=== PATIENT | male | born 1980 | race Caucasian/White ===

== ENCOUNTER 2016-12-20 15:49 | Emergency (ER) | payer MEDICAID ==
[2016-12-20 15:54] VITALS: O2SAT 97
--- NOTE | 2016-12-20 16:22 | EDPHY ---
H & P Stated Complaint: rash since last night on hands behind knees & ankles Time Seen by Provider: 12/20/16 15:56 HPI/ROS: CHIEF COMPLAINT: Rash HISTORY OF PRESENT ILLNESS: The patient is a 36-year-old man who has a pruritic vesicular type rash behind his right knee, on his right leg and on both hands. 1st noticed it last night. His girlfriend does not have any similar symptoms. They moved into a new house 2 days ago. No fever. REVIEW OF SYSTEMS: Constitutional: denies: chills, fever, recent illness, recent injury EENTM: denies: blurred vision, double vision, nose congestion Respiratory: denies: cough, shortness of breath Cardiac: denies: chest pain, irregular heart rate, lightheadedness, palpitations Gastrointestinal/Abdominal: denies: abdominal pain, diarrhea, nausea, vomiting, blood streaked stools Genitourinary: denies: dysuria, frequency, hematuria, pain Musculoskeletal: denies: joint pain, muscle pain Skin: denies: lesions, rash, jaundice, bruising Neurological: denies: headache, numbness, paresthesia, tingling, dizziness, weakness Hematologic/Lymphatic: denies: blood clots, easy bleeding, easy bruising Immunologic/allergic: denies: HIV/AIDS, transplant EXAM: GENERAL: Well-appearing, well-nourished and in no acute distress. HEAD: Atraumatic, normocephalic. EYES: Pupils equal round and reactive to light, extraocular movements intact, sclera anicteric, conjunctiva are normal. ENT: TMs normal, nares patent, oropharynx clear without exudates. Moist mucous membranes. NECK: Normal range of motion, supple without lymphadenopathy or JVD. LUNGS: Breath sounds clear to auscultation bilaterally and equal. No wheezes rales or rhonchi. HEART: Regular rate and rhythm without murmurs, rubs or gallops. ABDOMEN: Soft, nontender, normoactive bowel sounds. No guarding, no rebound. No masses appreciated. BACK: No CVA tenderness, no spinal tenderness, step-offs or deformities EXTREMITIES: Normal range of motion, no pitting or edema. No clubbing or cyanosis. NEUROLOGICAL: Cranial nerves II through XII grossly intact. Normal speech, normal gait. 5/5 strength, normal movement in all extremities, normal sensation PSYCH: Normal mood, normal affect. SKIN: Multiple linear burrows and vesicles on behind patient's right knee and leg and hands. Involves the increases between fingers and around fingernails. Source: Patient Exam Limitations: No limitations - Personal History Current Tetanus/Diphtheria Vaccine: Yes Current Tetanus Diphtheria and Acellular Pertussis (TDAP): Yes - Medical/Surgical History Hx Asthma: No Hx Chronic Respiratory Disease: No Hx Diabetes: No Hx Cardiac Disease: No Hx Renal Disease: No Hx Cirrhosis: No Hx Alcoholism: No Hx HIV/AIDS: No Hx Splenectomy or Spleen Trauma: No Other PMH: none - Family History Significant Family History: No pertinent family hx - Social History Smoking Status: Never smoked Alcohol Use: Sober Drug Use: None Constitutional: Initial Vital Signs Temperature (C) 36.4 C 12/20/16 15:52 Heart Rate 81 12/20/16 15:52 Respiratory Rate 16 12/20/16 15:52 Blood Pressure 138/87 H 12/20/16 15:52 O2 Sat (%) 97 12/20/16 15:52 O2 Delivery Mode Room Air Allergies/Adverse Reactions: No Known Allergies Allergy (Unverified 12/20/16 15:54) Home Medications: Medication Instructions Recorded Permethrin [Elimite] 60 gm TP ONCE #0 cream..g. 12/20/16 Medical Decision Making ED Course/Re-evaluation: The patient's symptoms and exam were consistent with scabies. I will start him on permethrin. He understands and agrees with this plan. We discussed care of the dog and girlfriend and house. I will have him follow up with primary care physician. He is declining further workup assistants point we also discussed antihistamines for itching. Differential Diagnosis: Partial list of the Differential diagnosis considered include but were not limited to; scabies, insect bite, pediculosis, atopic dermatitis, psoriasis and although unlikely based on the history and physical exam, I also considered allergic reaction, cellulitis, abscess. I discussed these differential diagnoses and the plan with the patient as well as the usual and expected course. The patient understands that the diagnosis is provisional and that in medicine we are not always correct and that further workup is often warranted. Usual and customary warnings were given. All of the patient's questions were answered. The patient was instructed to return to the emergency department should the symptoms at all worsen or return, otherwise to followup with the physician as we discussed. Departure - Departure Disposition: Home, Routine, Self-Care Clinical Impression: Scabies Condition: Fair Instructions: Scabies (ED) Referrals: NONE *PRIMARY CARE P,. [Primary Care Provider] - As per Instructions Amalia Pitts MD [[facility] [place], [place] Primary Care Provider] - As per Instructions Prescriptions: Permethrin [Elimite] 60 gm TP ONCE #0 cream..g.
[2016-12-20 16:44] VITALS: BP 133/79; PULSE 63; RESP 18; TEMP 98.1
== END 2016-12-20 16:44 | disposition home or self-care (01) ==
DX: B86 Scabies (principal)

== ENCOUNTER 2016-12-20 18:08 | Emergency (ER) | payer MEDICAID ==
[2016-12-20 18:15] VITALS: BP 142/92; PULSE 75; RESP 16; TEMP 98.1; O2SAT 98
--- NOTE | 2016-12-20 20:21 | EDPHY ---
H & P Smoking Status: Never smoked Time Seen by Provider: 12/20/16 19:46 HPI/ROS: CHIEF COMPLAINT: Rash HISTORY OF PRESENT ILLNESS: This is a 36-year-old male presenting to the emergency department complaining of rash. Patient was seen earlier today 12/20/2016 for rash was given prescription for permethrin for scabies, patient wanted a skin scraping or wound culture and antibiotics. No fever no chills no new complaints REVIEW OF SYSTEMS: Constitutional: No fever, no chills. Eyes: No discharge. ENT: No sore throat. Cardiovascular: No chest pain, no palpitations. Respiratory: No cough, no shortness of breath. Gastrointestinal: No abdominal pain, no vomiting. Genitourinary: No hematuria. Musculoskeletal: No back pain. Skin: rashes. Neurological: No headache. (Melanie Lyle) Physical Exam: General Appearance: Alert and no distress. Eyes: Pupils equal and round no injection. Oropharynx no erythema, no ulcers noted Respiratory: Chest is nontender, lungs are clear to auscultation. No rhonchi Cardiac: regular rate and rhythm Gastrointestinal: Abdomen is soft and nontender, no masses, bowel sounds normal. Musculoskeletal: Neck is supple and nontender. Extremities: full range of motion and are nontender. Skin: Vesicles noted between webbing of fingers, macular papular rash noted right popliteal, right inner thigh (Melanie Lyle) Constitutional: Initial Vital Signs Temperature (C) 36.7 C 12/20/16 18:13 Heart Rate 75 12/20/16 18:13 Respiratory Rate 16 12/20/16 18:13 Blood Pressure 142/92 H 12/20/16 18:13 O2 Sat (%) 98 12/20/16 18:13 O2 Delivery Mode Room Air Allergies/Adverse Reactions: No Known Allergies Allergy (Unverified 12/20/16 15:54) Home Medications: Medication Instructions Recorded Permethrin [Elimite] 60 gm TP ONCE #0 cream..g. 12/20/16 Medical Decision Making ED Course/Re-evaluation: Discussed with patient to utilize the permethrin 1% that was prescribed to him by previous provider for scabies. No antibiotics are needed 2024: Discussed discharge instructions---> discharge home, stable (Melanie Lyle ) Differential Diagnosis: Other differential diagnosis considered but not limited to bedbugs, hand foot and mouth disease, contact dermatitis (Melanie Lyle) Other Provider: This patient was evaluated and managed by the nurse practitioner. I have reviewed the chart and agree with the findings and plan of care as documented. ( Bridgette Kearney) Departure - Departure Disposition: Home, Routine, Self-Care Clinical Impression: Rash, Scabies Condition: Good Instructions: Scabies (ED) Additional Instructions: Discussed discharge instructions 1. Use medication as prescribed by previous provider 2. Wash all bedding and clothing in hot water 3. I would recommend following up with your primary care provider [place] follow up with Dermatology if symptoms have not resolved Referrals: NONE *PRIMARY CARE P,. [Primary Care Provider] - As per Instructions [facility],. [Clinic] - As per Instructions
== END 2016-12-20 20:32 | disposition home or self-care (01) ==
DX: R21 Rash and other nonspecific skin eruption (principal); B86 Scabies

== ENCOUNTER 2017-05-07 16:55 | Emergency (ER) | payer MEDICAID ==
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
[2017-05-07 18:40] VITALS: BP 120/82; PULSE 65; RESP 12; TEMP 98.4; O2SAT 94
== END 2017-05-07 18:37 | disposition home or self-care (01) ==
DX: R20.2 Paresthesia of skin (principal)
CPT/HCPCS: L3807

== ENCOUNTER 2018-08-29 02:02 | Emergency (ER) | payer MEDICAID ==
[2018-08-29 02:33] LABS: PLATELET COUNT 212 10^3/uL (150-400)
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
[2018-08-29 03:50] VITALS: BP 106/78
== END 2018-08-29 03:50 | disposition home or self-care (01) ==
DX: S09.90XA Unspecified injury of head, initial encounter (principal); F10.920 Alcohol use, unspecified with intoxication, uncomplicated; Y04.8XXA Assault by other bodily force, initial encounter; Y92.9 Unspecified place or not applicable; Y93.9 Activity, unspecified; Y99.9 Unspecified external cause status
CPT/HCPCS: G0480

== ENCOUNTER 2018-11-25 18:30 | Emergency (ER) | payer MEDICAID ==
--- NOTE | 2018-11-25 19:22 | EDPHY ---
H & P Stated Complaint: PARANOIA AND HALLUCINATION, NO DIAGNOSED PSYCH HX Time Seen by Provider: 11/25/18 19:05 HPI/ROS: CHIEF COMPLAINT: Paranoia, insomnia HISTORY OF PRESENT ILLNESS: 37-year-old male presents with paranoia and insomnia. He recently went through a break-up with his girlfriend and became quite depressed. He has been unable able to sleep because of depression. After couple of sleepless nights, he developed some paranoia and feels that people are threatening him. Associated with seeing pieces of paper that say "leave town". He was able to sleep a little last night and today feels better. He feels that if he could just get a good night's sleep, the symptoms would resolve. He had a previous similar episode 1 year ago associated with lack of sleep. He does not use drugs and does not drink alcohol. No prior history of mental illness. h/o hallucinations after taking ambien. No suicidal or homicidal ideation. REVIEW OF SYSTEMS: complete 10 point ROS reviewed and is negative except for the noted elements in the HPI - Medical/Surgical History Hx Asthma: No Hx Chronic Respiratory Disease: No Hx Diabetes: No Hx Cardiac Disease: No Hx Renal Disease: No Hx Cirrhosis: No Hx Alcoholism: No Hx HIV/AIDS: No Hx Splenectomy or Spleen Trauma: No Other PMH: scabies - Social History Smoking Status: Never smoked - Physical Exam Exam: General Appearance: Alert, pleasant and talkative Eyes: Pupils equal and round, no conjunctival pallor or injection ENT, Mouth: Mucous membranes moist Neck: Normal inspection Respiratory: Lungs are clear to auscultation Cardiovascular: Regular rate and rhythm Gastrointestinal: Abdomen is soft and nontender Neurological: A&O, nonfocal, normal gait Skin: Warm and dry Extremities: Normal inspection Psychiatric: Mood and affect normal Constitutional: Initial Vital Signs Temperature (C) 37 C 11/25/18 18:39 Heart Rate 85 11/25/18 18:39 Respiratory Rate 18 11/25/18 18:39 Blood Pressure 121/74 H 11/25/18 18:39 O2 Sat (%) 96 11/25/18 18:39 O2 Delivery Mode Room Air Allergies/Adverse Reactions: No Known Allergies Allergy (Verified 08/29/18 02:03) Home Medications: Medication Instructions Recorded NK [No Known Home Meds] 05/07/17 Medical Decision Making ED Course/Re-evaluation: This patient presents with paranoia and hallucinations related to insomnia and situational depression. He does not meet criteria for mental health hold. He is requesting assistance to help him sleep and will follow-up with mental health as an outpatient or with tonight if available. Friend in room, feels this is a safe plan for pt. I feel that this is a safe plan for him as well. The pt waited in ED for MH eval for over 3 hrs, MH busy with other pts, will f/ u as outpt. Warning signs discussed. Differential Diagnosis: Differential diagnosis includes though it is not limited to suicidal ideation, overdose, acute psychosis, self-injury, alcohol withdrawal. - Data Points Laboratory Results: Laboratory Results 11/25/18 19:34 11/25/18 19:34 Medications Given: Discontinued Medications Lorazepam (Ativan 1 Mg Prepack#4) 1 btl TAKEHOME EDNOW ONE Stop: 11/25/18 19:25 Last Admin: 11/25/18 21:15 Dose: 1 btl Departure - Departure Disposition: Home, Routine, Self-Care Clinical Impression: Insomnia, Psychosis Condition: Good Instructions: Lorazepam (By mouth), Depression (ED), Insomnia (ED) Additional Instructions: Ativan 1 tablet at bedtime as needed for insomnia. Referrals: SISSY COBOS [Primary Care Provider] - As per Instructions [facility] [Outside] - As per Instructions
[2018-11-25] MEDS ORDERED: LORAZEPAM 1 MG PREPACK#4 BTL TAKEHOME ONE (19:24)
[2018-11-25 19:43] LABS: PLATELET COUNT 199 10^3/uL (150-400)
[2018-11-25 21:20] VITALS: BP 127/79
== END 2018-11-25 21:20 | disposition home or self-care (01) ==
DX: G47.00 Insomnia, unspecified (principal); F29 Unspecified psychosis not due to a substance or known physiological condition
CPT/HCPCS: G0480